=== PATIENT | female | born 1990 | race Caucasian/White ===

== ENCOUNTER 2019-10-31 18:27 | Emergency (ER) | payer OTHER ==
[~2019-10-31] VITALS: Ht 157.5 cm; Wt 47.6 kg
--- NOTE | 2019-10-31 18:32 | NUR ---
CAME IN W L EYE PAIN S/P BLEACH SPLASH IN HER EYE WHILE CLEANING. 01/01 PS. TO ER BED 10, HOOKED TO MONITOR, CHANGED TO HOSP GOWN, WARM BLANKET PROVIDED. AWAITING MD DEL ANGEL
--- NOTE | 2019-10-31 18:39 | NUR ---
SEEN AND EXAMINED BY GUZMAN.
--- NOTE | 2019-10-31 18:43 | NUR ---
FLUSHED L EYE W 500ML OF NS VIA AKIRA LENS ORDERED. PATIENT TOLERATED WELL.
[2019-10-31] MEDS ORDERED: FLUORESCEIN SODIUM OPHTH 1 EA STRIP ONE (18:57)
[2019-10-31] MEDS ORDERED: TETRAcaine 5 ML BOTTLE EACHEYE ONE (19:00)
[2019-10-31] MEDS ORDERED: FLUORESCEIN SODIUM OPHTH 1 EA STRIP OP ONE (19:00)
--- NOTE | 2019-10-31 19:20 | NUR ---
YARELI LOPEZ AT BEDSIDE
--- NOTE | 2019-10-31 19:40 | NUR ---
Patient discharged to home in stable condition. Written and verbal after care instructions given. Patient verbalizes understanding of instruction. Prescriptions provided and explained to the patient.
[2019-10-31 19:41] VITALS: BP 129/78
== END 2019-10-31 19:42 | disposition home or self-care (01) ==
LOC: ER 18:33
DX: H10.212 Acute toxic conjunctivitis, left eye (principal)
CPT/HCPCS: 99284; J7030